=== PATIENT | male | born 1975 ===

== ENCOUNTER 2021-03-07 10:48 | Observation (INO) ==
[~2021-03-07 10:48] MED LIST: Buffered Lidocaine 1% SYRIN 1 ml INTRADERM ONE; Lactated Ringers 1000 ml BAG 1,000 ML IV SCH
[2021-03-07] MEDS ORDERED: Succinylcholine 200 mg VIAL 20 mg/ml 10 ml VIAL (200 mg) ONE (10:59)
[2021-03-07] MEDS ORDERED: Lidocaine 2% PF 5 ML VIAL ONE ×2 (10:59→17:30)
[2021-03-07] MEDS ORDERED: Midazolam 2 mg/2 ml VIAL 1 mg/ml 2 ml VIAL (2 mg) ONE (10:59)
[2021-03-07] MEDS ORDERED: Dexamethasone IV 4 MG/ML VIAL 1 ml VIAL ONE (10:59)
[2021-03-07] MEDS ORDERED: fentaNYL 250 mcg/5 ml 50 MCG/ML 5 ml VIAL (250 MCG) ONE (10:59)
[2021-03-07] MEDS ORDERED: Ondansetron 4 mg VIAL 2 MG/ML 2 ml VIAL ONE (10:59)
[2021-03-07] MEDS ORDERED: fentaNYL 100 mcg/2 ml 50 MCG/ML VIAL IV PRN (12:09)
[2021-03-07] MEDS ORDERED: DiMENhydriNATE IV 50 mg/ml 1 ml VIAL IV PUSH PRN (12:09)
[2021-03-07] MEDS ORDERED: Naloxone 0.4 mg VIAL 0.4 mg/ml 1 ml VIAL IV PRN (12:09)
[2021-03-07] MEDS ORDERED: HYDROmorphone 1 MG/1 ML SYRINGE IV PRN (12:09)
[2021-03-07] MEDS ORDERED: Ondansetron 4 mg VIAL 2 MG/ML 2 ml VIAL IV PRN ×2 (12:09→17:50)
[2021-03-07] MEDS ORDERED: Acetaminophen IV 1 GM/100ML 1,000 MG/100 ML VIAL IVPB PRN (12:09)
[2021-03-07] MEDS ORDERED: Propofol 10 mg/ml 100 ML BTL 100 ML ONE (13:22)
[2021-03-07] MEDS ORDERED: Phenylephrine 40 mcg/mL 10mL (400mcg) SYRINGE ONE (14:47)
[2021-03-07] MEDS ORDERED: fentaNYL 100 mcg/2 ml 50 MCG/ML VIAL ONE (17:24)
[2021-03-07] MEDS ORDERED: Acetaminophen IV 1 GM/100ML 100 ML ONE (17:24)
[2021-03-07] MEDS ORDERED: Al Hydrox/Mg Hydrox/Simet LIQ 30 ML UDC PO PRN (17:50)
[2021-03-07] MEDS ORDERED: oxyCODONE/Acetamin 5/325 mg TAB PO PRN (17:54)
[2021-03-07] MEDS ORDERED: NS 0.9% 1000 ml BAG 1,000 ML IV SCH (18:00)
[2021-03-07] MEDS ORDERED: hydrALAZINE 20 mg/ml 1 ML Vial IV IV SLOW PU PRN (18:30)
[2021-03-07] MEDS: Calcium (OSCAL) 500 mg TAB PO SCH (20:57)
[2021-03-08 04:29] LABS: ABS Lymphocytes 1.1 10^3/ul (1.0-4.8); ABS Monocytes 1.1 10^3/ul (0-0.8); Eosinophil % 0.1 %; Hematocrit 44 % (42-52); Hemoglobin 14.8 g/dL (14.0-18.0); Lymphocyte % 9.2 %; Mean Corpuscular HGB Conc 34 g/dL (31-36); Mean Corpuscular Hemoglobin 30 pg (27-31); Mean Corpuscular Volume 88 fL (80-94); Mean Platelet Volume 8.8 fL (7.4-10.4); Nucleated Red Blood Cells % 0.1; Platelet Count 203 10^3/uL (150-450); Red Blood Count 4.99 10^6 /uL (4.18-5.48); Red Cell Distribution Width 13 % (10-15); White Blood Count 12.3 10^3/uL (3.5-10.8)
[2021-03-08 04:46] LABS: Calcium 7.6 mg/dL (8.6-10.3); EGFR African American 116.9 (>60); EGFR Non-African American 96.6 (>60); Potassium 3.6 mmol/L (3.5-5.0)
[2021-03-08] MEDS ORDERED: Calcium Gluconate 2 GM in NS 0.9% 100 ml BAG 100 ML IV ONE (07:30)
[2021-03-08] MEDS: Calcium (OSCAL) 500 mg TAB PO SCH (07:51)
[2021-03-08] MEDS: CMC:Pravastatin 20 mg TAB (NF) PO SCH (11:21)
[2021-03-08] MEDS ORDERED: Calcium (OSCAL) 500 mg TAB PO SCH ×2 (13:00→18:00)
[2021-03-08] MEDS ORDERED: CALCIUM GLUCONATE 1GM/50ML NS 1 GM/50 ML BAG IV ONE (19:30)
[2021-03-08] MEDS ORDERED: CALCITRIOL 1 MCG/ML IV ONE (19:30)
[2021-03-08] MEDS: Calcium Carbonate LIQ 1,250 mg/5 ml UDC PO SCH ×2 (20:01→22:22)
[2021-03-09 03:58] LABS: ABS Eosinophils 0.2 10^3/ul (0-0.6); ABS Lymphocytes 2.7 10^3/ul (1.0-4.8); ABS Monocytes 1.1 10^3/ul (0-0.8); ABS Neutrophils 4.8 10^3/ul (1.5-7.7); Eosinophil % 2.7 %; Hematocrit 43 % (42-52); Hemoglobin 14.5 g/dL (14.0-18.0); Lymphocyte % 30.1 %; Mean Corpuscular HGB Conc 34 g/dL (31-36); Mean Corpuscular Hemoglobin 30 pg (27-31); Mean Corpuscular Volume 88 fL (80-94); Mean Platelet Volume 9.3 fL (7.4-10.4); Platelet Count 176 10^3/uL (150-450); Red Blood Count 4.83 10^6 /uL (4.18-5.48); Red Cell Distribution Width 13 % (10-15); White Blood Count 8.9 10^3/uL (3.5-10.8)
[2021-03-09 04:15] LABS: Calcium 8.5 mg/dL (8.6-10.3); EGFR African American 118.5 (>60); EGFR Non-African American 97.9 (>60); Potassium 3.7 mmol/L (3.5-5.0)
[2021-03-09] MEDS: Calcium Carbonate LIQ 1,250 mg/5 ml UDC PO SCH ×3 (05:23→14:06)
[2021-03-09] MEDS: CMC:Pravastatin 20 mg TAB (NF) PO SCH (08:53)
[2021-03-09 11:15] VITALS: BP 129/73
== END 2021-03-09 14:28 | disposition home or self-care (01) ==
LOC: SSU 10:48 → OR 10:48
PROVIDERS: ADMIT Internal Medicine; ATTEND Otolaryngology